=== PATIENT | male | born 1950 | race Caucasian/White ===

== ENCOUNTER 2021-02-24 17:41 | Observation (INO) | payer OTHER ==
[~2021-02-24] VITALS: Ht 160 cm; Wt 75.2 kg
[~2021-02-24 17:41] MED LIST: BUPRENORPHN-NA1 EACH SL; Budeprion Xl300 MG PO; CALCIPOTRIENE60 G1 TOP; DICL75ER PO; DOCU100 PO; DOXY100 PO; DULO30 PO; HYDPAM25 PO; LISI5 PO; MELA3 PO; METF850 PO; Metformin HCl500 MG PO; NARCAN4 MG; NIACIN PO; NICO21TP TOP; PRAZ5 PO; PREG50 PO; Prinivil10 MG PO; TAMS.4ER PO
[2021-02-24 18:52] LABS: BASOPHILS ABSOLUTE AUTO 0.05 K/mm3 (0.00-0.23); BASOPHILS PERCENT AUTO 1 % (0-2); EOSINOPHILS ABSOLUTE AUTO 0.11 K/mm3 (0.00-0.68); EOSINOPHILS PERCENT AUTO 2 % (0-6); Hematocrit 40.7 % (37.0-53.0); Hemoglobin 14.2 g/dL (13.5-17.5); IMMATURE GRAN ABSOLUTE AUTO 0.01 K/mm3 (0.00-0.10); IMMATURE GRAN PERCENT AUTO 0 % (0-1); LYMPHOCYTES ABSOLUTE AUTO 1.48 K/mm3 (0.84-5.20); LYMPHOCYTES PERCENT AUTO 26 % (21-46); MONOCYTES PERCENT AUTO 5 % (4-13); Mean Corpuscular HGB 33.5 pg (26.0-34.0); Mean Corpuscular HGB Conc 34.9 g/dL (31.5-36.5); Mean Corpuscular Volume 96 fL (80-100); Mean Platelet Volume 9.4 fL (9.1-12.4); NEUTROPHILS ABSOLUTE AUTO 3.84 K/mm3 (1.96-9.15); NEUTROPHILS PERCENT AUTO 66 % (41-73); Platelet Count 156 K/mm3 (150-400); RDW Coefficient Variation 12.5 % (11.7-14.2); RDW Standard Deviation 43.6 fL (35.1-46.3); Red Blood Cell Count 4.24 M/mm3 (4.30-5.90); White Blood Cell Count 5.79 K/mm3 (4.00-11.30)
[2021-02-24 19:19] LABS: Ethanol (Alcohol), Blood, Med 283 mg/dL; Troponin I <0.015 ng/mL (0.000-0.040)
[2021-02-24 19:23] LABS: Alanine Aminotransfer (ALT/SGP 15 U/L (12-78); Albumin, Blood 3.3 g/dL (3.4-5.0); Albumin/Globulin Ratio 0.8 (0.8-1.8); Alk Phos 46 U/L (50-136); Anion Gap 9 mmol/L (6-16); Aspartate Aminotrans (AST/SGOT 19 U/L (12-37); Bilirubin, Total 0.3 mg/dL (0.1-1.0); Blood Urea Nitrogen 14 mg/dL (8-24); Bun/Creatinine Ratio 17.3 (12.0-20.0); CO2, Blood 26 mmol/L (21-32); Calcium, Blood 9.3 mg/dL (8.5-10.1); Chloride, Blood 105 mmol/L (98-108); Creatinine, Blood 0.81 mg/dL (0.60-1.20); Globulin, Blood 4.4 g/dL (2.2-4.0); Glomerular Filtration Rate >60 (60-); Glucose, Blood 151 mg/dL (70-99); Potassium, Blood 3.6 mmol/L (3.5-5.5); Sodium, Blood 140 mmol/L (136-145); Total Protein, Blood 7.7 g/dL (6.4-8.2)
[2021-02-25 05:29] LABS: Alanine Aminotransfer (ALT/SGP 14 U/L (12-78); Albumin, Blood 2.9 g/dL (3.4-5.0); Albumin/Globulin Ratio 0.7 (0.8-1.8); Alk Phos 39 U/L (50-136); Anion Gap 9 mmol/L (6-16); Aspartate Aminotrans (AST/SGOT 16 U/L (12-37); Bilirubin, Total 0.3 mg/dL (0.1-1.0); Blood Urea Nitrogen 14 mg/dL (8-24); CO2, Blood 23 mmol/L (21-32); Calcium, Blood 9.1 mg/dL (8.5-10.1); Chloride, Blood 108 mmol/L (98-108); Creatinine, Blood 0.74 mg/dL (0.60-1.20); Globulin, Blood 3.9 g/dL (2.2-4.0); Glomerular Filtration Rate >60 (60-); Glucose, Blood 147 mg/dL (70-99); Magnesium, Blood 1.8 mg/dL (1.6-2.4); Potassium, Blood 3.6 mmol/L (3.5-5.5); Sodium, Blood 140 mmol/L (136-145); Total Protein, Blood 6.8 g/dL (6.4-8.2); Troponin I <0.015 ng/mL (0.000-0.040)
--- NOTE | 2021-02-25 05:49 | NUR ---
SHIFT SUMMARY PT ARRIVED TO THE UNIT AROUND 2330. PT WAS ABLE TO STAND AND TRANSFER TO BED, HE WAS ALERT AND ORIENTED TO SELF, PLACE, AND YEAR, HE WAS UNSURE WHY HE WAS AT THE HOSPITAL AND HAD NO MEMORY OF THE EVENTS LEADING TO HIM GETTING TO THE ER. PT WOULD REPEAT HIMSELF AT TIMES OR REPEAT QUESTIONS HE JUST ASKED. VITALS WERE STABLE WITH BP HYPERTENSIVE 130-160'S SYSTOLIC. HR 30-40'S UP TO 60-70'S FOR ABOUT 2HR AFTER ATROPINE PUSH, TELE SHOWING AFIB. PT DENIED ANY CHEST PAIN. PT NPO SINCE 0000, WILL CONTINUE TO MONITOR PT.
--- NOTE | 2021-02-25 07:03 | NUR ---
Pt irritable, states he has been awake for 28 hours and he has had enough of this, waiting for anti anxiety medications. RN Roney explaining to the pt that the medications were not ordered due to his low heart rate. Pt is angry, states "Just forget it. How long do I have to be Here?"
--- NOTE | 2021-02-25 07:41 | NUR ---
Pt CIWA 8; still agitated. Blood pressure elevated. Call to Dr. Lees and order for ativan p.o. received.
--- NOTE | 2021-02-25 09:59 | NUR ---
Spoke with Dr. Pinto regarding pt's 2.4 second pause. Blood pressure remains elevated; noted new order for catapres; will administer now.
[2021-02-25 10:26] LABS: U Amphetamine Screen Not Detected; U Barbituate Screen Not Detected; U Benzodiazapine Screen Not Detected; U Buprenorphine Screen Not Detected; U Cannabinoids Screen DETECTED; U Cocaine Screen Not Detected; U Methadone Screen Not Detected; U Methamphetamine Screen Not Detected; U Opiates Screen Not Detected; U Oxycodone Screen Not Detected; U Phencyclidine Screen Not Detected; U Propoxyphene Screen Not Detected
--- NOTE | 2021-02-25 10:46 | NUR ---
Pt appears to be sleeping, respirations even and regular. Blood pressure rechecked, normalizing. Atrial fibrillation by telemetry, rate 50 bpm at this time.
--- NOTE | 2021-02-25 14:02 | NUR ---
Agitated, states he is going outside. Informed pt that if he leaves, he will have to go through the ED to be readmitted. He decided to stay.
--- NOTE | 2021-02-25 14:15 | NUR ---
Pt states that he does not want to stay. Signing AMA form at this time with the chargemaster analyst; IV removed, tele removed.
== END 2021-02-25 14:20 | disposition left against medical advice (07) ==
LOC: ER 17:41 → PCU 17:42
PROVIDERS: Emergency Medicine; ADMIT Internal Medicine
DX: R00.1 Bradycardia, unspecified (principal); R55 Syncope and collapse; F17.210 Nicotine dependence, cigarettes, uncomplicated; F10.129 Alcohol abuse with intoxication, unspecified; I10 Essential (primary) hypertension; E11.9 Type 2 diabetes mellitus without complications; I48.91 Unspecified atrial fibrillation; S09.90XA Unspecified injury of head, initial encounter; X58.XXXA Exposure to other specified factors, initial encounter; Z88.2 Allergy status to sulfonamides; Z88.5 Allergy status to narcotic agent; Z88.8 Allergy status to other drugs, medicaments and biological substances; Z53.29 Procedure and treatment not carried out because of patient's decision for other reasons; Y90.8 Blood alcohol level of 240 mg/100 ml or more
CPT/HCPCS: 36415; 70450; 80053; 83735; 84443; 84484; 85025; 93005; 93010; 96374; 96375; 99285-25; A9270; G0378; G0480; J0461

== ENCOUNTER 2021-03-23 15:22 | Emergency (ER) | payer OTHER ==
[~2021-03-23] VITALS: Ht 160 cm; Wt 81.7 kg
== END 2021-03-23 17:26 | disposition home or self-care (01) ==
LOC: ER 15:22
DX: S09.90XA Unspecified injury of head, initial encounter (principal); S01.01XA Laceration without foreign body of scalp, initial encounter; I10 Essential (primary) hypertension; E11.9 Type 2 diabetes mellitus without complications; F17.210 Nicotine dependence, cigarettes, uncomplicated; Z88.2 Allergy status to sulfonamides; Z88.5 Allergy status to narcotic agent; Z88.6 Allergy status to analgesic agent; Z79.899 Other long term (current) drug therapy; W18.30XA Fall on same level, unspecified, initial encounter; Y92.009 Unspecified place in unspecified non-institutional (private) residence as the place of occurrence of the external cause
CPT/HCPCS: 12001; 70450; 72125; 99284-25

== ENCOUNTER 2021-04-02 22:15 | Emergency (ER) | payer OTHER ==
[~2021-04-02] VITALS: Ht 180.3 cm; Wt 79.4 kg
[2021-04-02 22:38] LABS: BASOPHILS ABSOLUTE AUTO 0.04 K/mm3 (0.00-0.23); BASOPHILS PERCENT AUTO 1 % (0-2); EOSINOPHILS ABSOLUTE AUTO 0.06 K/mm3 (0.00-0.68); EOSINOPHILS PERCENT AUTO 1 % (0-6); Hematocrit 36.3 % (37.0-53.0); IMMATURE GRAN ABSOLUTE AUTO 0.01 K/mm3 (0.00-0.10); IMMATURE GRAN PERCENT AUTO 0 % (0-1); LYMPHOCYTES PERCENT AUTO 31 % (21-46); MONOCYTES PERCENT AUTO 6 % (4-13); Mean Corpuscular HGB 34.4 pg (26.0-34.0); Mean Corpuscular HGB Conc 35.8 g/dL (31.5-36.5); Mean Corpuscular Volume 96 fL (80-100); Mean Platelet Volume 9.6 fL (9.1-12.4); NEUTROPHILS ABSOLUTE AUTO 2.93 K/mm3 (1.96-9.15); NEUTROPHILS PERCENT AUTO 61 % (41-73); Platelet Count 156 K/mm3 (150-400); RDW Coefficient Variation 13.1 % (11.7-14.2); Red Blood Cell Count 3.78 M/mm3 (4.30-5.90); White Blood Cell Count 4.84 K/mm3 (4.00-11.30)
[2021-04-02 22:52] LABS: Alanine Aminotransfer (ALT/SGP 29 U/L (12-78); Albumin, Blood 3.2 g/dL (3.4-5.0); Albumin/Globulin Ratio 0.8 (0.8-1.8); Alk Phos 42 U/L (50-136); Anion Gap 12 mmol/L (6-16); Aspartate Aminotrans (AST/SGOT 53 U/L (12-37); Bilirubin, Total 0.3 mg/dL (0.1-1.0); Blood Urea Nitrogen 14 mg/dL (8-24); CO2, Blood 21 mmol/L (21-32); Calcium, Blood 9.1 mg/dL (8.5-10.1); Chloride, Blood 109 mmol/L (98-108); Creatinine, Blood 1.17 mg/dL (0.60-1.20); Ethanol (Alcohol), Blood, Med 278 mg/dL; Glomerular Filtration Rate >60 (60-); Glucose, Blood 192 mg/dL (70-99); Potassium, Blood 4.1 mmol/L (3.5-5.5); Sodium, Blood 142 mmol/L (136-145); Total Protein, Blood 7.2 g/dL (6.4-8.2)
[2021-04-03 00:23] LABS: Source, Urine Clean Catch
[2021-04-03 00:28] LABS: Bilirubin, Urine Neg (Neg); Blood, Urine Neg (Neg); Glucose Qualitative, Urine Neg (Neg); Ketones, Urine Neg (Neg); Leukocyte Esterase, Urine Neg (Neg); Nitrite, Urine Neg (Neg); Protein, Urine 3+ (Neg); Urobilinogen, Urine NORM (Normal)
[2021-04-03 00:29] LABS: Appearance, Urine Clear (Clear); Color, Urine Yellow (P-Yellow)
[2021-04-03 00:55] LABS: White Blood Cells, Urine Rare /hpf (0-5)
[2021-04-03 00:56] LABS: Bacteria Not Seen /hpf; Red Blood Cells, Urine Not Seen /hpf (0-2); Squamous Epithelial Cells Not Seen /hpf (Few)
== END 2021-04-03 02:00 | disposition home or self-care (01) ==
LOC: ER 22:15
PROVIDERS: Student in an Organized Health Care Education/Training Program
DX: S00.03XA Contusion of scalp, initial encounter (principal); F10.129 Alcohol abuse with intoxication, unspecified; I10 Essential (primary) hypertension; E11.9 Type 2 diabetes mellitus without complications; F17.200 Nicotine dependence, unspecified, uncomplicated; Z88.2 Allergy status to sulfonamides; Z88.5 Allergy status to narcotic agent; Z88.6 Allergy status to analgesic agent; Z79.899 Other long term (current) drug therapy; W17.81XA Fall down embankment (hill), initial encounter
CPT/HCPCS: 70450; 71260; 72125; 74177; 80053; 81001; 83690; 85025; 96374-59; 99285-25; G0480; J2270; Q9967

== ENCOUNTER 2021-05-14 19:45 | Emergency (ER) | payer OTHER ==
[~2021-05-14] VITALS: Ht 162.6 cm; Wt 72.6 kg
== END 2021-05-15 02:20 | disposition home or self-care (01) ==
LOC: ER 19:45
DX: S06.0X9A Concussion with loss of consciousness of unspecified duration, initial encounter (principal); E11.9 Type 2 diabetes mellitus without complications; I10 Essential (primary) hypertension; F17.200 Nicotine dependence, unspecified, uncomplicated; F10.129 Alcohol abuse with intoxication, unspecified; Z88.6 Allergy status to analgesic agent; Z88.2 Allergy status to sulfonamides; Z88.5 Allergy status to narcotic agent; W18.30XA Fall on same level, unspecified, initial encounter
CPT/HCPCS: 36415; 70450; 72125; 99284-25; A9270

== ENCOUNTER 2022-02-19 16:09 | Emergency (ER) | payer MEDICARE ==
[~2022-02-19] VITALS: Ht 160 cm; Wt 68.0 kg
[2022-02-19 16:55] LABS: Source, Urine Clean Catch
[2022-02-19 17:01] LABS: BASOPHILS ABSOLUTE AUTO 0.04 K/mm3 (0.00-0.23); BASOPHILS PERCENT AUTO 1 % (0-2); EOSINOPHILS ABSOLUTE AUTO 0.04 K/mm3 (0.00-0.68); EOSINOPHILS PERCENT AUTO 1 % (0-6); Hemoglobin 11.7 g/dL (13.5-17.5); IMMATURE GRAN ABSOLUTE AUTO 0.01 K/mm3 (0.00-0.10); IMMATURE GRAN PERCENT AUTO 0 % (0-1); LYMPHOCYTES ABSOLUTE AUTO 0.77 K/mm3 (0.84-5.20); LYMPHOCYTES PERCENT AUTO 21 % (21-46); MONOCYTES PERCENT AUTO 8 % (4-13); Mean Corpuscular HGB 33.4 pg (26.0-34.0); Mean Corpuscular HGB Conc 34.4 g/dL (31.5-36.5); Mean Corpuscular Volume 97 fL (80-100); Mean Platelet Volume 9.7 fL (9.1-12.4); NEUTROPHILS ABSOLUTE AUTO 2.52 K/mm3 (1.96-9.15); NEUTROPHILS PERCENT AUTO 68 % (41-73); Platelet Count 118 K/mm3 (150-400); RDW Coefficient Variation 13.3 % (11.7-14.2); RDW Standard Deviation 47.3 fL (35.1-46.3); White Blood Cell Count 3.68 K/mm3 (4.00-11.30)
[2022-02-19 17:02] LABS: Appearance, Urine Clear (Clear); Bilirubin, Urine Neg (Neg); Blood, Urine 1+ (Neg); Color, Urine Yellow (P-Yellow); Glucose Qualitative, Urine Neg (Neg); Ketones, Urine Neg (Neg); Leukocyte Esterase, Urine Neg (Neg); Nitrite, Urine Neg (Neg); Protein, Urine 3+ (Neg); Specific Gravity, Urine 1.015 (1.003-1.022); Urobilinogen, Urine NORM (Normal)
[2022-02-19 17:17] LABS: U Amphetamine Screen Not Detected; U Barbituate Screen Not Detected; U Benzodiazapine Screen Not Detected; U Buprenorphine Screen Not Detected; U Cannabinoids Screen Not Detected; U Cocaine Screen Not Detected; U Methadone Screen Not Detected; U Methamphetamine Screen Not Detected; U Opiates Screen Not Detected; U Oxycodone Screen Not Detected; U Phencyclidine Screen Not Detected; U Propoxyphene Screen Not Detected
[2022-02-19 17:19] LABS: White Blood Cells, Urine 0-2 /hpf (0-5)
[2022-02-19 17:20] LABS: Bacteria Rare /hpf; Squamous Epithelial Cells Not Seen /hpf (Few)
[2022-02-19 17:24] LABS: Acetaminophen, Random <2.0 ug/mL (10.0-30.0); Alanine Aminotransfer (ALT/SGP 37 U/L (12-78); Albumin, Blood 2.6 g/dL (3.4-5.0); Albumin/Globulin Ratio 0.7 (0.8-1.8); Alk Phos 57 U/L (50-136); Anion Gap 10 mmol/L (6-16); Aspartate Aminotrans (AST/SGOT 91 U/L (12-37); Bilirubin, Total 0.5 mg/dL (0.1-1.0); Blood Urea Nitrogen 20 mg/dL (8-24); Bun/Creatinine Ratio 22.7 (12.0-20.0); CO2, Blood 21 mmol/L (21-32); Calcium, Blood 8.6 mg/dL (8.5-10.1); Chloride, Blood 103 mmol/L (98-108); Creatinine, Blood 0.88 mg/dL (0.60-1.20); Ethanol (Alcohol), Blood, Med 221 mg/dL; Globulin, Blood 3.7 g/dL (2.2-4.0); Glomerular Filtration Rate 93 (60-); Glucose, Blood 227 mg/dL (70-99); Potassium, Blood 3.6 mmol/L (3.5-5.5); Salicylate <1.7 mg/dL (2.8-20.0); Sodium, Blood 134 mmol/L (136-145); Total Protein, Blood 6.3 g/dL (6.4-8.2)
[2022-02-19 19:30] LABS: Influenza A, PCR NEGATIVE (NEGATIVE); Influenza B, PCR NEGATIVE (NEGATIVE); Resp Syncytial Virus, PCR NEGATIVE (NEGATIVE); SARS-Cov-2 (COVID-19) PCR, MMC NEGATIVE (NEGATIVE)
== END 2022-02-20 00:34 | disposition home or self-care (01) ==
LOC: ER 16:09
PROVIDERS: Physician Assistant
DX: F32.A Depression, unspecified (principal); I10 Essential (primary) hypertension; E11.9 Type 2 diabetes mellitus without complications; F17.200 Nicotine dependence, unspecified, uncomplicated; Z88.2 Allergy status to sulfonamides; Z88.5 Allergy status to narcotic agent; Z88.6 Allergy status to analgesic agent; Z79.899 Other long term (current) drug therapy
CPT/HCPCS: 0241U; 36415; 80053; 81001; 84484; 85025; 93005; 93010; A9270; G0480

== ENCOUNTER 2022-02-20 21:08 | Emergency (ER) | payer OTHER ==
[~2022-02-20] VITALS: Ht 160 cm; Wt 74.8 kg
== END 2022-02-21 01:31 | disposition home or self-care (01) ==
LOC: ER 21:08
DX: F10.129 Alcohol abuse with intoxication, unspecified (principal); F17.210 Nicotine dependence, cigarettes, uncomplicated
CPT/HCPCS: 99284-25

== ENCOUNTER 2022-02-21 02:51 | Emergency (ER) | payer OTHER ==
[~2022-02-21] VITALS: Ht 160 cm; Wt 72.6 kg
== END 2022-02-21 03:58 | disposition home or self-care (01) ==
LOC: ER 02:51
DX: M54.50 Low back pain, unspecified (principal); G89.29 Other chronic pain; I10 Essential (primary) hypertension; E11.9 Type 2 diabetes mellitus without complications; F17.210 Nicotine dependence, cigarettes, uncomplicated; Z88.2 Allergy status to sulfonamides; Z88.5 Allergy status to narcotic agent; Z88.8 Allergy status to other drugs, medicaments and biological substances; Z79.899 Other long term (current) drug therapy
CPT/HCPCS: A9270

== ENCOUNTER 2022-02-21 06:47 | Emergency (ER) | payer OTHER ==
[~2022-02-21] VITALS: Ht 160 cm; Wt 76.2 kg
== END 2022-02-21 08:17 | disposition home or self-care (01) ==
LOC: ER 06:47
DX: M54.50 Low back pain, unspecified (principal); Z87.891 Personal history of nicotine dependence; Z88.2 Allergy status to sulfonamides; Z88.6 Allergy status to analgesic agent; Z79.899 Other long term (current) drug therapy; Z88.5 Allergy status to narcotic agent
CPT/HCPCS: 99282

== ENCOUNTER 2022-02-28 12:18 | Emergency (ER) | payer OTHER ==
[~2022-02-28] VITALS: Ht 160 cm; Wt 70.3 kg
[2022-02-28 13:14] LABS: BASOPHILS ABSOLUTE AUTO 0.02 K/mm3 (0.00-0.23); BASOPHILS PERCENT AUTO 1 % (0-2); EOSINOPHILS ABSOLUTE AUTO 0.05 K/mm3 (0.00-0.68); EOSINOPHILS PERCENT AUTO 2 % (0-6); Hematocrit 32.7 % (37.0-53.0); IMMATURE GRAN PERCENT AUTO 0 % (0-1); LYMPHOCYTES ABSOLUTE AUTO 0.67 K/mm3 (0.84-5.20); LYMPHOCYTES PERCENT AUTO 21 % (21-46); MONOCYTES ABSOLUTE AUTO 0.33 K/mm3 (0.16-1.47); MONOCYTES PERCENT AUTO 11 % (4-13); Mean Corpuscular HGB 34.2 pg (26.0-34.0); Mean Corpuscular HGB Conc 33.6 g/dL (31.5-36.5); Mean Corpuscular Volume 102 fL (80-100); Mean Platelet Volume 10.6 fL (9.1-12.4); NEUTROPHILS ABSOLUTE AUTO 2.08 K/mm3 (1.96-9.15); NEUTROPHILS PERCENT AUTO 66 % (41-73); Platelet Count 94 K/mm3 (150-400); RDW Coefficient Variation 13.5 % (11.7-14.2); RDW Standard Deviation 50.4 fL (35.1-46.3); Red Blood Cell Count 3.22 M/mm3 (4.30-5.90); White Blood Cell Count 3.15 K/mm3 (4.00-11.30)
[2022-02-28 13:37] LABS: Albumin, Blood 2.6 g/dL (3.4-5.0); Albumin/Globulin Ratio 0.7 (0.8-1.8); Bilirubin, Total 0.3 mg/dL (0.1-1.0); Bun/Creatinine Ratio 33.9 (12.0-20.0); Calcium, Blood 9.1 mg/dL (8.5-10.1); Creatinine, Blood 0.95 mg/dL (0.60-1.20); Globulin, Blood 3.5 g/dL (2.2-4.0); Potassium, Blood 4.6 mmol/L (3.5-5.5); Total Protein, Blood 6.1 g/dL (6.4-8.2)
[2022-02-28 14:13] LABS: Magnesium, Blood 1.6 mg/dL (1.6-2.4); Phosphorus, Blood 3.7 mg/dL (2.5-4.9)
[2022-02-28] MEDS ORDERED: ASCO500 PO (14:39)
[2022-02-28] MEDS ORDERED: ELIQUIS5 M2 PO (14:39)
[2022-02-28] MEDS ORDERED: AMLO10 PO (14:39)
[2022-02-28] MEDS ORDERED: ERGO400 PO (14:40)
[2022-02-28] MEDS ORDERED: Vitamin B-12100 MCG PO (14:41)
[2022-02-28] MEDS ORDERED: FERSU300 PO (14:41)
[2022-02-28] MEDS ORDERED: GABA300 PO (14:42)
[2022-02-28] MEDS ORDERED: INSULIN AS100 UNIT/7 (14:43)
[2022-02-28] MEDS ORDERED: LEVEMIR FL100 UNIT/2 SC (14:44)
[2022-02-28] MEDS ORDERED: LISI20 PO (14:45)
[2022-02-28] MEDS ORDERED: STRIVERDI RESPIM4 G1 IH (14:47)
[2022-02-28] MEDS ORDERED: METF500 PO (14:47)
[2022-02-28] MEDS ORDERED: PRAZ1 PO (14:56)
[2022-02-28] MEDS ORDERED: OMEP20ER PO (14:56)
[2022-02-28] MEDS ORDERED: SPIR25 PO (14:57)
[2022-02-28] MEDS ORDERED: TRAZ100 PO (14:58)
[2022-02-28] MEDS ORDERED: VENL75ER (14:58)
== END 2022-02-28 16:58 | disposition home or self-care (01) ==
LOC: ER 12:18
PROVIDERS: Emergency Medicine; Physician Assistant
DX: R00.1 Bradycardia, unspecified (principal); R42 Dizziness and giddiness; I10 Essential (primary) hypertension; E11.9 Type 2 diabetes mellitus without complications; F32.A Depression, unspecified; Z87.891 Personal history of nicotine dependence
CPT/HCPCS: 71045; 80053; 83735; 84100; 84484; 85025; 93005; 93010

== ENCOUNTER 2022-06-03 19:34 | Emergency (ER) | payer OTHER ==
[~2022-06-03] VITALS: Ht 160 cm; Wt 70.3 kg
[~2022-06-03 19:34] MED LIST changes: +AMLO10 PO; +ASCO500 PO; +ELIQUIS5 M2 PO; +ERGO400 PO; +FERSU300 PO; +GABA300 PO; +INSULIN AS100 UNIT/7; +LEVEMIR FL100 UNIT/2 SC; +LISI20 PO; +METF500 PO; +OMEP20ER PO; +PRAZ1 PO; +SPIR25 PO; +STRIVERDI RESPIM4 G1 IH; +TRAZ100 PO; +VENL75ER; +Vitamin B-12100 MCG PO
== END 2022-06-03 22:27 | disposition home or self-care (01) ==
LOC: ER 19:34
DX: F32.9 Major depressive disorder, single episode, unspecified (principal); I10 Essential (primary) hypertension; E11.9 Type 2 diabetes mellitus without complications; F17.210 Nicotine dependence, cigarettes, uncomplicated; Z79.899 Other long term (current) drug therapy; Z79.01 Long term (current) use of anticoagulants; Z79.4 Long term (current) use of insulin; Z88.2 Allergy status to sulfonamides; Z88.5 Allergy status to narcotic agent; Z88.8 Allergy status to other drugs, medicaments and biological substances
CPT/HCPCS: 99283

== ENCOUNTER 2022-06-04 12:03 | Emergency (ER) | payer OTHER ==
[~2022-06-04] VITALS: Ht 162.6 cm; Wt 77.1 kg
== END 2022-06-04 14:28 | disposition home or self-care (01) ==
LOC: ER 12:03
DX: S01.112A Laceration without foreign body of left eyelid and periocular area, initial encounter (principal); I10 Essential (primary) hypertension; E11.9 Type 2 diabetes mellitus without complications; F17.210 Nicotine dependence, cigarettes, uncomplicated; Z79.4 Long term (current) use of insulin; Z79.899 Other long term (current) drug therapy; Z79.01 Long term (current) use of anticoagulants; Z88.5 Allergy status to narcotic agent; Z88.2 Allergy status to sulfonamides; Z88.8 Allergy status to other drugs, medicaments and biological substances
CPT/HCPCS: 36415; 70450; 72125

== ENCOUNTER 2022-06-04 15:02 | Emergency (ER) | payer OTHER ==
[~2022-06-04] VITALS: Ht 160 cm; Wt 77.1 kg
== END 2022-06-04 21:20 | disposition home or self-care (01) ==
LOC: ER 15:02
DX: F32.A Depression, unspecified (principal); I10 Essential (primary) hypertension; E11.9 Type 2 diabetes mellitus without complications; F17.210 Nicotine dependence, cigarettes, uncomplicated; Z79.4 Long term (current) use of insulin; Z79.01 Long term (current) use of anticoagulants; Z88.2 Allergy status to sulfonamides; Z88.5 Allergy status to narcotic agent; Z88.8 Allergy status to other drugs, medicaments and biological substances; Z79.899 Other long term (current) drug therapy
CPT/HCPCS: A9270

== ENCOUNTER 2022-06-24 07:45 | Emergency (ER) | payer OTHER ==
[~2022-06-24] VITALS: Ht 162.6 cm; Wt 74.8 kg
== END 2022-06-24 08:54 | disposition home or self-care (01) ==
LOC: ER 07:45
DX: Z76.89 Persons encountering health services in other specified circumstances (principal); Z59.00 Homelessness unspecified; I10 Essential (primary) hypertension; E11.9 Type 2 diabetes mellitus without complications; F17.210 Nicotine dependence, cigarettes, uncomplicated; Z79.899 Other long term (current) drug therapy; Z79.4 Long term (current) use of insulin; Z79.01 Long term (current) use of anticoagulants; Z88.2 Allergy status to sulfonamides; Z88.5 Allergy status to narcotic agent; Z88.8 Allergy status to other drugs, medicaments and biological substances
CPT/HCPCS: 99283

== ENCOUNTER 2023-10-06 14:50 | Emergency (ER) | payer MEDICARE ==
[~2023-10-06] VITALS: Ht 162.6 cm; Wt 59.0 kg
[2023-10-06 15:13] VITALS: BP 149/71
== END 2023-10-06 17:47 | disposition home or self-care (01) ==
LOC: ER 14:50
DX: M54.50 Low back pain, unspecified (principal); G89.29 Other chronic pain; F17.210 Nicotine dependence, cigarettes, uncomplicated; I10 Essential (primary) hypertension; E11.9 Type 2 diabetes mellitus without complications; F43.10 Post-traumatic stress disorder, unspecified; Z79.4 Long term (current) use of insulin; Z79.84 Long term (current) use of oral hypoglycemic drugs; Z79.01 Long term (current) use of anticoagulants; Z79.899 Other long term (current) drug therapy; Z88.2 Allergy status to sulfonamides; Z88.5 Allergy status to narcotic agent; Z88.8 Allergy status to other drugs, medicaments and biological substances
CPT/HCPCS: 96372; 99283-25; A9270; J1885

== ENCOUNTER 2024-08-08 05:31 | Inpatient (IN) | payer OTHER ==
[2024-08-08] VITALS (9 sets, daily range): BP systolic 150–182; BP diastolic 58–82
[~2024-08-08] VITALS: Ht 162.6 cm; Wt 78.4 kg
[2024-08-08 06:05] LABS: BASOPHILS ABSOLUTE AUTO 0.04 K/mm3 (0.00-0.23); BASOPHILS PERCENT AUTO 1 % (0-2); EOSINOPHILS ABSOLUTE AUTO 0.14 K/mm3 (0.00-0.68); EOSINOPHILS PERCENT AUTO 2 % (0-6); Hematocrit 27.8 % (37.0-53.0); Hemoglobin 9.1 g/dL (13.5-17.5); IMMATURE GRAN ABSOLUTE AUTO 0.01 K/mm3 (0.00-0.10); IMMATURE GRAN PERCENT AUTO 0 % (0-1); LYMPHOCYTES ABSOLUTE AUTO 0.97 K/mm3 (0.84-5.20); LYMPHOCYTES PERCENT AUTO 17 % (21-46); MONOCYTES ABSOLUTE AUTO 0.41 K/mm3 (0.16-1.47); MONOCYTES PERCENT AUTO 7 % (4-13); Mean Corpuscular HGB 29.6 pg (26.0-34.0); Mean Corpuscular HGB Conc 32.7 g/dL (31.5-36.5); Mean Corpuscular Volume 91 fL (80-100); Mean Platelet Volume 9.8 fL (9.1-12.4); NEUTROPHILS ABSOLUTE AUTO 4.17 K/mm3 (1.96-9.15); NEUTROPHILS PERCENT AUTO 73 % (41-73); Platelet Count 155 K/mm3 (150-400); RDW Coefficient Variation 13.6 % (11.7-14.2); RDW Standard Deviation 44.9 fL (35.1-46.3); Red Blood Cell Count 3.07 M/mm3 (4.30-5.90); White Blood Cell Count 5.74 K/mm3 (4.00-11.30)
[2024-08-08 06:29] LABS: Albumin, Blood 3.5 g/dL (3.4-5.0); Albumin/Globulin Ratio 0.9 (0.8-1.8); Bilirubin, Total 0.6 mg/dL (0.1-1.0); Bun/Creatinine Ratio 34.8 (12.0-20.0); Calcium, Blood 9.5 mg/dL (8.5-10.1); Creatinine, Blood 1.41 mg/dL (0.60-1.20); Globulin, Blood 4.1 g/dL (2.2-4.0); Potassium, Blood 4.3 mmol/L (3.5-5.5); Total Protein, Blood 7.6 g/dL (6.4-8.2)
[2024-08-08 06:43] LABS: Influenza A, PCR NEGATIVE (NEGATIVE); Influenza B, PCR NEGATIVE (NEGATIVE); Resp Syncytial Virus, PCR NEGATIVE (NEGATIVE); SARS-Cov-2 (COVID-19) PCR, MMC NEGATIVE (NEGATIVE)
[2024-08-08] MEDS ORDERED: Nicotine 21 MG PATCH TOP ONE (07:10)
[2024-08-08] MEDS ORDERED: Furosemide 10 MG / ML 2ML Vial IV ONE (07:45)
[2024-08-08 08:27] LABS: Base Excess Venous -2.8 mmol/L; Bicarbonate Venous 22.1 mmol/L (24.0-30.0); pH Blood Venous 7.33 (7.34-7.37)
[2024-08-08] MEDS ORDERED: FLU VACC TS2024-25(6MOS UP)/PF 45 MCG/0.5 ML SYRINGE IM PRN (09:45)
[2024-08-08] MEDS ORDERED: BUTRANS TD ×2 (09:48→15:55)
[2024-08-08] MEDS ORDERED: Acetaminophen325 M1 PO (09:49)
[2024-08-08] MEDS ORDERED: LIDO700A20 TOP (09:51)
[2024-08-08] MEDS ORDERED: STRIVERDI RESPIM4 G1 (09:52)
[2024-08-08] MEDS ORDERED: PANT40 PO (09:53)
[2024-08-08] MEDS ORDERED: Crestor40 MG PO (09:54)
[2024-08-08] MEDS ORDERED: SERT100 PO (09:54)
[2024-08-08] MEDS ORDERED: ALBU90OI INH (09:55)
[2024-08-08] MEDS ORDERED: LOPE2C PO (09:56)
[2024-08-08] MEDS ORDERED: Acetaminophen 325 MG TABLET PO PRN (11:05)
--- NOTE | 2024-08-08 11:24 | NUR ---
REPORT RECIEVED FROM ED NURSE AT 1121.
--- NOTE | 2024-08-08 12:00 | NUR ---
ARRIVAL TO PCU 10 PT ARRIVED TO PCU 10 AT APPROXIMATELY 1200. PT SLID OVER FROM ER GURNEY TO HOSPITAL BED BY 4 CLINICAL STAFF MEMBERS. PT KNOWS HE IS IN HOSPITAL BUT DOESN'T ANSWER ANY OTHER ORIENTATION QUESTIONS APPROPRIATELY. BP ELEVATED, NOTIFIED PHYSICIAN. AFIB / PACED 50-70's, DENIES CP/PRESSURE. SpO2> 92% 3-5L VIA NC, REPORTS SOB WITH ACTIVITY. PT YELLING AND CUSSING AT STAFF. ORIENTED TO CALL LIGHT / UNIT. BED IN LOWEST POSITION, BED ALARM ON.
[2024-08-08] MEDS ORDERED: Ipratropium/Albuterol SulF 2.5-0.5MG/3 ML Amp INH SCH (12:15)
[2024-08-08] MEDS ORDERED: Albuterol 2.5 MG/3 ML VIAL INH PRN (12:15)
[2024-08-08] MEDS ORDERED: Labetalol HCL 5 MG/ML 4ML Injection (Single Dose) IV PRN (13:30)
[2024-08-08] MEDS ORDERED: AmLODIPine Besylate 5 MG Tab PO SCH (14:00)
[2024-08-08] MEDS ORDERED: TOCO1000 PO (15:57)
[2024-08-08] MEDS ORDERED: GABA100 PO (15:58)
[2024-08-08] MEDS ORDERED: SENN187 PO (16:05)
[2024-08-08] MEDS ORDERED: DULCOLAX400 MG/5 M PO (16:08)
[2024-08-08] MEDS ORDERED: NYSTATIN15 GM TOP (16:09)
[2024-08-08] MEDS ORDERED: Furosemide 10 MG/ML 4ML Vial IV SCH (18:00)
[2024-08-08] MEDS ORDERED: Apixaban 5 MG Tab PO SCH (21:00)
[2024-08-09 03:53] VITALS: BP 160/72
[2024-08-09 03:56] LABS: BASOPHILS ABSOLUTE AUTO 0.03 K/mm3 (0.00-0.23); BASOPHILS PERCENT AUTO 1 % (0-2); EOSINOPHILS ABSOLUTE AUTO 0.09 K/mm3 (0.00-0.68); EOSINOPHILS PERCENT AUTO 2 % (0-6); Hematocrit 25.7 % (37.0-53.0); Hemoglobin 8.8 g/dL (13.5-17.5); IMMATURE GRAN ABSOLUTE AUTO 0.01 K/mm3 (0.00-0.10); IMMATURE GRAN PERCENT AUTO 0 % (0-1); LYMPHOCYTES ABSOLUTE AUTO 0.79 K/mm3 (0.84-5.20); LYMPHOCYTES PERCENT AUTO 15 % (21-46); MONOCYTES ABSOLUTE AUTO 0.34 K/mm3 (0.16-1.47); MONOCYTES PERCENT AUTO 6 % (4-13); Mean Corpuscular HGB 30.4 pg (26.0-34.0); Mean Corpuscular HGB Conc 34.2 g/dL (31.5-36.5); Mean Corpuscular Volume 89 fL (80-100); Mean Platelet Volume 10.1 fL (9.1-12.4); NEUTROPHILS ABSOLUTE AUTO 4.11 K/mm3 (1.96-9.15); NEUTROPHILS PERCENT AUTO 77 % (41-73); Platelet Count 136 K/mm3 (150-400); RDW Coefficient Variation 13.7 % (11.7-14.2); RDW Standard Deviation 44.2 fL (35.1-46.3); Red Blood Cell Count 2.89 M/mm3 (4.30-5.90); White Blood Cell Count 5.37 K/mm3 (4.00-11.30)
[2024-08-09 04:23] LABS: Albumin, Blood 3.2 g/dL (3.4-5.0); Albumin/Globulin Ratio 0.8 (0.8-1.8); Bilirubin, Total 0.8 mg/dL (0.1-1.0); Calcium, Blood 8.9 mg/dL (8.5-10.1); Creatinine, Blood 1.15 mg/dL (0.60-1.20); Globulin, Blood 3.8 g/dL (2.2-4.0); Potassium, Blood 3.7 mmol/L (3.5-5.5)
--- NOTE | 2024-08-09 05:53 | NUR ---
SHIFT SUMMARY PATIENT ALERT, ORIENTED TO SELF ONLY. PATIENT VERY ANGRY WITH WORDS AND WILL YELL OUT AND USE PROFANITIES BUT IS REDIRECTABLE. BED ALARM ON FOR SAFETY PATIENT IS IMPULSIVE AT TIMES. HYPERTENSIVE BUT PRN MEDICATIONS OUT OF PARAMETERS THIS SHIFT. ON 3-5L NC WITH SPO2 LOW TO MID 90s. PER [employer], PATIENT VPACED ON MONITOR. USED BIPAP FOR RESCUE BUT PATIENT ONLY ABLE TO TOLERATE FOR ABOUT 20 MINUTES. PATIENT INCONTINENT, ATTENDS IN PLACE. NO OTHER CHANGES DURING THE NIGHT, WILL REPORT TO DAY SHIFT RN.
[2024-08-09] MEDS ORDERED: Pantoprazole Sodium 40 MG Tab PO SCH (06:00)
[2024-08-09] MEDS ORDERED: Magnesium Hydroxide Conc 10 ML UDC PO PRN (07:25)
[2024-08-09] MEDS ORDERED: Nystatin 100,000 Unit/GM CREAM 15 GM TOP PRN (07:35)
[2024-08-09] MEDS ORDERED: Misc. Topical TOP SCH (08:00)
[2024-08-09] MEDS ORDERED: Ipratropium/Albuterol SulF 2.5-0.5MG/3 ML Amp INH PRN (08:05)
[2024-08-09 08:35] VITALS: BP 160/79
[2024-08-09] MEDS ORDERED: Rosuvastatin Calcium 10 MG Tab PO SCH (09:00)
[2024-08-09] MEDS ORDERED: Sertraline HCl 100 MG Tab PO SCH (09:00)
[2024-08-09] MEDS ORDERED: Sennosides 8.6 MG Tab PO SCH (09:00)
[2024-08-09] MEDS ORDERED: Gabapentin 300 MG Cap PO SCH (09:00)
[2024-08-09] MEDS ORDERED: Enoxaparin 40 MG/0.4 ML SYR SC SCH (09:00)
[2024-08-09] MEDS ORDERED: Nicotine 21 MG PATCH TOP SCH (09:00)
[2024-08-09] MEDS ORDERED: AmLODIPine Besylate 5 MG Tab PO SCH (09:00)
[2024-08-09] MEDS ORDERED: Vitamin E 1000 Unit Cap PO SCH (09:00)
[2024-08-09 11:34] VITALS: BP 153/72
[2024-08-09] MEDS ORDERED: Furosemide 10 MG/ML 4ML Vial IV SCH (13:00)
[2024-08-09 16:02] VITALS: BP 157/76
--- NOTE | 2024-08-09 18:30 | NUR ---
SHIFT SUMMARY: PT A&OX2. KNOWS WHERE HE IS AT AND IS ORIENTED TO SELF. PT IS CONFUSED OFF AND ON BUT IS EASILY REDIRECTABLE. PT REMAINS ON 2.5 L NC. PT GOT UP TO THE CHAIR MULTIPLE TIMES TODAY. PURE WICK PLACED ON PT DUE TO A LARGE AMOUNT OF INCONTINENT URINE AND BEING ON STRICT I&O. PT DENIES ANY CP OR SOB THROUGHOUT SHIFT. NO SIGNIFICANT EVENTS HAPPENED DURING THIS SHIFT. NO ACUTE NEURO CHANGES. WILL CONTINUE TO CARE FOR PT TILL END OF SHIFT.
[2024-08-09 20:00] VITALS: BP 152/56
[2024-08-10] VITALS: BP 140/88
--- NOTE | 2024-08-10 01:04 | NUR ---
PT ALERT AND ORIENTED X2, LITTLE CONFUSED BUT REDIRECTABLE, LAYING COMFORTABLY IN BED. PT IS PACED AT 60s, DENIES CHEST PAIN. PT IS ON ROOM AIR SATTING >95%, CLEAR OVER DIMINISHED LUNG SOUNDS. PT HAS MALE PUREWICK THAT IS WORKING GREAT. PLAN OF CARE CONTINUED.
[2024-08-10 04:00] VITALS: BP 165/70
--- NOTE | 2024-08-10 04:07 | NUR ---
PT LAYING IN BED WATCHING TELEVISION. NO NEW EVENTS TO REPORT OVERNIGHT. PLAN OF CARE CONTINUED.
[2024-08-10 04:18] LABS: BASOPHILS ABSOLUTE AUTO 0.04 K/mm3 (0.00-0.23); BASOPHILS PERCENT AUTO 1 % (0-2); EOSINOPHILS ABSOLUTE AUTO 0.17 K/mm3 (0.00-0.68); EOSINOPHILS PERCENT AUTO 3 % (0-6); Hematocrit 28.1 % (37.0-53.0); Hemoglobin 9.5 g/dL (13.5-17.5); IMMATURE GRAN ABSOLUTE AUTO 0.01 K/mm3 (0.00-0.10); IMMATURE GRAN PERCENT AUTO 0 % (0-1); LYMPHOCYTES ABSOLUTE AUTO 0.94 K/mm3 (0.84-5.20); LYMPHOCYTES PERCENT AUTO 17 % (21-46); MONOCYTES ABSOLUTE AUTO 0.41 K/mm3 (0.16-1.47); MONOCYTES PERCENT AUTO 8 % (4-13); Mean Corpuscular HGB 30.4 pg (26.0-34.0); Mean Corpuscular HGB Conc 33.8 g/dL (31.5-36.5); Mean Corpuscular Volume 90 fL (80-100); Mean Platelet Volume 9.5 fL (9.1-12.4); NEUTROPHILS ABSOLUTE AUTO 3.87 K/mm3 (1.96-9.15); NEUTROPHILS PERCENT AUTO 71 % (41-73); Platelet Count 161 K/mm3 (150-400); RDW Coefficient Variation 13.6 % (11.7-14.2); RDW Standard Deviation 44.4 fL (35.1-46.3); Red Blood Cell Count 3.12 M/mm3 (4.30-5.90); White Blood Cell Count 5.44 K/mm3 (4.00-11.30)
[2024-08-10 04:48] LABS: Albumin, Blood 3.1 g/dL (3.4-5.0); Albumin/Globulin Ratio 0.8 (0.8-1.8); Bilirubin, Total 0.9 mg/dL (0.1-1.0); Bun/Creatinine Ratio 37.2 (12.0-20.0); Calcium, Blood 9.2 mg/dL (8.5-10.1); Creatinine, Blood 0.97 mg/dL (0.60-1.20); Globulin, Blood 4.1 g/dL (2.2-4.0); Potassium, Blood 3.2 mmol/L (3.5-5.5); Total Protein, Blood 7.2 g/dL (6.4-8.2)
[2024-08-10] MEDS ORDERED: Potassium Chloride 10 Meq Tablet SA PO ONE (08:25)
[2024-08-10 09:47] VITALS: BP 156/81
[2024-08-10 15:56] VITALS: BP 145/98
--- NOTE | 2024-08-10 16:40 | NUR ---
SHIFT SUMMARY: PT ALERT AND ORIENTED X2-3. ABLE TO FOLLOW COMMANDS AND MAKE NEEDS KNOWN. FORGETFUL, HX OF DEMENTIA. BED ALARM FOR SAFETY. PT IRRITABLE AT TIMES WITH CARE, EASILY REDIRECTABLE. BP AND HR STABLE. AFEBRILE. SPO2 >98% ON ROOM AIR. LUNG SOUNDS CLEAR IN UPPER, DIM IN BASES. RESPIRATIONS EVEN AND UNLABORED. PULSES STRONG AND EQUAL THROUGHOUT. ABD SOFT, NON TENDER, BOWEL SOUNDS +. PUREWICK REMAINS IN PLACE, APPROX 1300 ML OF URINARY OUTPUT THIS SHIFT. ONE BM. PT ABLE TO STAND AND TRANSFER W/ ONE PERSON ASSIST. PT NOW MEDICAL WITH TELE STATUS. BED IN LOW, CALL LIGHT IN REACH, WILL REPORT TO ONCOMING RN.
[2024-08-10 20:00] VITALS: BP 143/94
--- NOTE | 2024-08-10 20:47 | NUR ---
PT IS LAYING IN BED WATCHING TV. ALERT AND ORIENTED X2. PT IS PACED AT 60, PT DENIES CHEST PAIN. PT IS ON ROOM AIR SATTING >95%. PT IS STILL USING MALE PUREWICK AND TOLERATING WELL. PLAN IS TO DISCHARGE BACK TO FACILITY ON MONDAY. PLAN OF CARE CONTINUED.
[2024-08-11 00:16] VITALS: BP 166/72
[2024-08-11 01:48] VITALS: BP 166/72
[2024-08-11 05:00] VITALS: BP 152/71
--- NOTE | 2024-08-11 05:38 | NUR ---
SHIFT SUMMARY PT IS TRANSFER FROM PCU FOR SOB. PT IS ALERT AND ORIENTED TIMES 2. PT IS ABLE TO USE BEDSIDE COMMODE WITH ONE PERSON ASSIST AND WALKER PT. ABLE TO MAKE NEEDS KNOWN, IS ON ROOM AIR. TAKES MEDS WHOLE IN WATER. . PT PULLED RT FOREARM IV OUT WELL PUREWICK. PT IS EXTREMELY NEEDY AND PRESSES CALL LIGHT. CONTINUOUSLY THROUGHOUT THE NIGHT. AT ONE POINT PT WANTED TO USE THE BATHROOM BUT BECAME UPSET THAT THERE WERE NO DEVICES TO LIGHT A CIGARETTE. HE THEN GOT OUT OF BED AND FELL. PT DENIES HITTING HIS HEAD. VITALS TAKEN AND TOOL FILER NOTIFIED. PT ASSESSED FOR SKIN TEARS OR ABRASIONS. PT WAS ASSISTED BACK TO BED. APPEARED TO WATCH TV THROUGH OUT THE NIGHT. PT CONTINUOUSLY NON COMPLIANT WITH CARE AND BELITTLES CLINIC ADMINISTRATOR. PT REFUSED A CHANGE OF HOSPITAL GOWN. AND REFUSED IV ACCESS. TOOL FILER CONTACTED TO SEE ABOUT CHANGING IV LASIX TO PO ORDER. PT HAS BED ALARM. BED IN LOW POSITION, CALL LIGHT WITHIN REACH, RAILS TIMES 2.
[2024-08-11 07:40] VITALS: BP 150/76
[2024-08-11] MEDS ORDERED: Furosemide 80 MG Tab PO SCH ×2 (09:00→14:00)
[2024-08-11] MEDS ORDERED: Potassium Chloride 10 Meq Tablet SA PO ONE (09:00)
[2024-08-11] MEDS ORDERED: Spironolactone 25 MG Tab PO SCH (14:00)
[2024-08-11] MEDS ORDERED: Empagliflozin 10 MG TAB PO SCH (14:00)
[2024-08-11 14:30] VITALS: BP 172/82
--- NOTE | 2024-08-11 17:57 | NUR ---
SHIFT SUMMARY PT A&O TO SELF/PERSON ONLY, VSS, TOLERATING SMALL AMOUNT OF PO, VOIDING, AND DENIED PAIN. PT COOPERATIVE W/ SOME CARE. NO ACUTE CHANGES. CALL LIGHT WITHIN REACH AND BED ALARM ON FOR SAFETY.
[2024-08-11 22:04] VITALS: BP 147/87
[2024-08-12 03:56] VITALS: BP 158/83
--- NOTE | 2024-08-12 04:48 | NUR ---
SHIFT SUMMARY PT IS ALERT AND ORIENTED TIMES 2. PT IS ABLE TO USE BEDSIDE COMMODE WITH ONE PERSON ASSIST AND WALKER PT. ABLE TO MAKE NEEDS KNOWN, IS ON ROOM AIR. TAKES MEDS WHOLE IN WATER. PT PRESSES CALL LIGHT THEN DENIES HE WANTED ANYTHING. PT CONTINUOUSLY CHALLENGING WITH CARE AND BELITTLES STAFF. PT REFUSED A CHANGE OF HOSPITAL GOWN AND BEDDING. PT HAS BED ALARM. BED IN LOW POSITION, CALL LIGHT WITHIN REACH, RAILS TIMES 2.
[2024-08-12 07:45] VITALS: BP 162/80
[2024-08-12 16:18] VITALS: BP 143/85
[2024-08-12 19:31] VITALS: BP 147/70
[2024-08-13 02:24] VITALS: BP 148/77
--- NOTE | 2024-08-13 06:57 | NUR ---
SHIFT SUMMARY PT WALKED TO BATHROOM WITH FWW WITH THIS RN AND SCRIPT ARTIST. PT SLOW AND STILL UNSTABLE ON FEET. PT BED REMADE, BRIEF CHANGED AND PT BACK IN BED WITH BED ALARM ON. PT IS FEELING AGITATED TONIGHT. INFORMED PT HE CANNOT MISTREAT STAFF. PT HAS ICE WATER AT BEDSIDE AND IS SITTING COMFORTABLY IN BED WATCHING TV. WILL RELAY TO DAY NURSE.
[2024-08-13 07:47] VITALS: BP 139/72
[2024-08-13] MEDS ORDERED: JARDIANCE10 MG PO (09:30)
[2024-08-13] MEDS ORDERED: FURO40 PO (09:31)
--- NOTE | 2024-08-13 10:41 | NUR ---
DISCHARGE NOTE: MEDICAL TRANSPORT ARRIVED TO GET PATIENT TO TAKE BACK TO [facility]. PATIENT NOTIFIED OF DISCHARGE AND ASKED WHERE HE WAS GOING; NOTIFIED [facility]. CALLED AND GAVER REPORT TO STEVE THE NURSE OVER THERE. PAPERWORK AND BELONGINGS SENT WITH PATIENT. PATIENT WAS ABLE TO TRANSFER WITH TWO STAFF ASSIST TO WHEELCHAIR. NO SIGNS OR SYMPTOMS OF DISTRESS. PATIENT REFUSED TO GET DRESSED SENT IN [facility].
== END 2024-08-13 10:37 | disposition home or self-care (01) | DRG 291 ==
LOC: ER 05:31 → PCU 05:32 → MEDS 08-09 15:37 → PCU 08-09 15:37 → MEDS 08-10 21:01
PROVIDERS: Emergency Medicine; Family Medicine; ADMIT Hospitalist
DX: I11.0 Hypertensive heart disease with heart failure (principal); I50.31 Acute diastolic (congestive) heart failure; J96.01 Acute respiratory failure with hypoxia; N17.9 Acute kidney failure, unspecified; F03.93 Unspecified dementia, unspecified severity, with mood disturbance; I48.20 Chronic atrial fibrillation, unspecified; G89.29 Other chronic pain; F17.210 Nicotine dependence, cigarettes, uncomplicated; E78.5 Hyperlipidemia, unspecified; F43.10 Post-traumatic stress disorder, unspecified; M54.50 Low back pain, unspecified; F10.10 Alcohol abuse, uncomplicated; F12.90 Cannabis use, unspecified, uncomplicated; E11.40 Type 2 diabetes mellitus with diabetic neuropathy, unspecified; Z88.2 Allergy status to sulfonamides; Z88.5 Allergy status to narcotic agent; Z88.6 Allergy status to analgesic agent; Z88.8 Allergy status to other drugs, medicaments and biological substances; Z79.84 Long term (current) use of oral hypoglycemic drugs; Z79.899 Other long term (current) drug therapy; Z95.0 Presence of cardiac pacemaker
CPT/HCPCS: 0241U; 36415; 71045; 80053; 82803; 83735; 83880; 84443; 84484; 85025; 93005; 93010; 93306; 94640; 94660; 94664; 94760; 94762; 96374; 96376; 99285-25; A9270; G0378; J1940

== ENCOUNTER 2024-08-22 12:49 | Emergency (ER) | payer OTHER ==
[~2024-08-22] VITALS: Ht 172.7 cm; Wt 72.6 kg
[~2024-08-22 12:49] MED LIST changes: +ALBU90OI INH; +Acetaminophen325 M1 PO; +BUTRANS TD; +Crestor40 MG PO; +DULCOLAX400 MG/5 M PO; +FURO40 PO; +GABA100 PO; +JARDIANCE10 MG PO; +LIDO700A20 TOP; +LOPE2C PO; +NYSTATIN15 GM TOP; +PANT40 PO; +SENN187 PO; +SERT100 PO; +STRIVERDI RESPIM4 G1; +TOCO1000 PO
[2024-08-22 17:30] VITALS: BP 128/74
== END 2024-08-22 17:30 | disposition home or self-care (01) ==
LOC: ER 12:49
DX: T17.928A Food in respiratory tract, part unspecified causing other injury, initial encounter (principal); R55 Syncope and collapse; Z79.84 Long term (current) use of oral hypoglycemic drugs; Z79.899 Other long term (current) drug therapy; W44.F3XA Food entering into or through a natural orifice, initial encounter
CPT/HCPCS: 71045; 99284-25

== ENCOUNTER → 2024-09-27 | Outpatient (CLI) | payer OTHER ==
[2024-09-27 13:34] LABS: Source, Urine Clean Catch
[2024-09-27 15:45] LABS: Appearance, Urine Clear (Clear); Bilirubin, Urine Neg (Neg); Blood, Urine Neg (Neg); Color, Urine Yellow (P-Yellow); Glucose Qualitative, Urine 4+ (Neg); Ketones, Urine Neg (Neg); Leukocyte Esterase, Urine Neg (Neg); Nitrite, Urine Neg (Neg); Protein, Urine 2+ (Neg); Urobilinogen, Urine NORM (Normal); pH, Urine 6.5 (5.0-8.0)
[2024-09-27 16:33] LABS: Bacteria Rare /hpf; Red Blood Cells, Urine 0-2 /hpf (0-2); Squamous Epithelial Cells Not Seen /hpf (Few); White Blood Cells, Urine 0-2 /hpf (0-5)
== END | disposition home or self-care (01) ==
LOC: LAB SHORT 13:31 → LAB 13:31
PROVIDERS: Nurse Practitioner Family
DX: N39.0 Urinary tract infection, site not specified (principal)
CPT/HCPCS: 81001

== ENCOUNTER 2025-01-30 17:00 | Emergency (ER) | payer OTHER ==
[~2025-01-30] VITALS: Ht 162.6 cm; Wt 72.6 kg
[2025-01-30] MEDS ORDERED: Diphth,Pertuss(Acell),Tet Vac 0.5 ML VIAL IM ONE (17:50)
[2025-01-30 19:08] VITALS: BP 142/68
== END 2025-01-30 19:26 | disposition home or self-care (01) ==
LOC: ER 17:00
DX: S31.010A Laceration without foreign body of lower back and pelvis without penetration into retroperitoneum, initial encounter (principal); S09.90XA Unspecified injury of head, initial encounter; Z23 Encounter for immunization; I10 Essential (primary) hypertension; F43.10 Post-traumatic stress disorder, unspecified; E11.40 Type 2 diabetes mellitus with diabetic neuropathy, unspecified; Z86.59 Personal history of other mental and behavioral disorders; Z88.2 Allergy status to sulfonamides; Z88.8 Allergy status to other drugs, medicaments and biological substances; Z88.5 Allergy status to narcotic agent; Z79.01 Long term (current) use of anticoagulants; Z79.899 Other long term (current) drug therapy; Z79.84 Long term (current) use of oral hypoglycemic drugs; W18.30XA Fall on same level, unspecified, initial encounter
CPT/HCPCS: 12001; 70450; 90471; 90715; 99284-25

== ENCOUNTER 2025-03-10 14:53 | Emergency (ER) | payer OTHER ==
[~2025-03-10] VITALS: Ht 160 cm; Wt 74.8 kg
[2025-03-10 15:07] VITALS: BP 158/80
[2025-03-10 15:46] LABS: BASOPHILS ABSOLUTE AUTO 0.02 K/mm3 (0.00-0.23); BASOPHILS PERCENT AUTO 1 % (0-2); EOSINOPHILS ABSOLUTE AUTO 0.05 K/mm3 (0.00-0.68); EOSINOPHILS PERCENT AUTO 1 % (0-6); Hematocrit 35.6 % (37.0-53.0); Hemoglobin 12.1 g/dL (13.5-17.5); IMMATURE GRAN ABSOLUTE AUTO 0.01 K/mm3 (0.00-0.10); IMMATURE GRAN PERCENT AUTO 0 % (0-1); LYMPHOCYTES PERCENT AUTO 16 % (21-46); MONOCYTES ABSOLUTE AUTO 0.34 K/mm3 (0.16-1.47); MONOCYTES PERCENT AUTO 8 % (4-13); Mean Corpuscular HGB 31.7 pg (26.0-34.0); Mean Corpuscular Volume 93 fL (80-100); Mean Platelet Volume 9.1 fL (9.1-12.4); NEUTROPHILS ABSOLUTE AUTO 3.19 K/mm3 (1.96-9.15); NEUTROPHILS PERCENT AUTO 74 % (41-73); Platelet Count 161 K/mm3 (150-400); RDW Coefficient Variation 13.7 % (11.7-14.2); RDW Standard Deviation 46.5 fL (35.1-46.3); Red Blood Cell Count 3.82 M/mm3 (4.30-5.90); White Blood Cell Count 4.31 K/mm3 (4.00-11.30)
[2025-03-10 16:19] LABS: Albumin, Blood 3.8 g/dL (3.4-5.0); Albumin/Globulin Ratio 0.8 (0.8-1.8); Bilirubin, Total 0.4 mg/dL (0.1-1.0); Bun/Creatinine Ratio 24.6 (12.0-20.0); Calcium, Blood 9.2 mg/dL (8.5-10.1); Creatinine, Blood 1.87 mg/dL (0.60-1.20); Globulin, Blood 4.7 g/dL (2.2-4.0); Magnesium, Blood 2.2 mg/dL (1.6-2.4); Total Protein, Blood 8.5 g/dL (6.4-8.2)
[2025-03-10 18:22] LABS: Source, Urine Clean Catch
[2025-03-10 19:54] LABS: Appearance, Urine Clear (Clear); Bilirubin, Urine Neg (Neg); Blood, Urine Neg (Neg); Color, Urine Yellow (P-Yellow); Glucose Qualitative, Urine 4+ (Neg); Ketones, Urine Neg (Neg); Leukocyte Esterase, Urine Neg (Neg); Nitrite, Urine Neg (Neg); Protein, Urine 2+ (Neg); Urobilinogen, Urine NORM (Normal)
[2025-03-10 20:24] LABS: Bacteria Rare /hpf; Red Blood Cells, Urine 0-2 /hpf (0-2); Squamous Epithelial Cells Rare /hpf (Few); White Blood Cells, Urine 0-2 /hpf (0-5)
== END 2025-03-10 21:40 | disposition home or self-care (01) ==
LOC: ER 14:53
PROVIDERS: Emergency Medicine
DX: N17.9 Acute kidney failure, unspecified (principal); I10 Essential (primary) hypertension; E11.42 Type 2 diabetes mellitus with diabetic polyneuropathy; F03.90 Unspecified dementia, unspecified severity, without behavioral disturbance, psychotic disturbance, mood disturbance, and anxiety; F17.210 Nicotine dependence, cigarettes, uncomplicated; Z95.0 Presence of cardiac pacemaker; Z88.2 Allergy status to sulfonamides; Z88.6 Allergy status to analgesic agent; Z88.5 Allergy status to narcotic agent; Z88.1 Allergy status to other antibiotic agents; Z79.01 Long term (current) use of anticoagulants; Z79.84 Long term (current) use of oral hypoglycemic drugs; Z79.899 Other long term (current) drug therapy
CPT/HCPCS: 51798; 80053; 81001; 83735; 85025; 99283-25

== ENCOUNTER 2025-08-17 09:58 | Emergency (ER) | payer OTHER ==
[~2025-08-17] VITALS: Ht 162.6 cm; Wt 63.5 kg
[2025-08-17] MEDS ORDERED: ACET500 PO (10:27)
[2025-08-17] MEDS ORDERED: BUTRANS1 EAC6 TD (10:28)
[2025-08-17] MEDS ORDERED: FERROUS GLUCON324 M7 PO (10:28)
[2025-08-17] MEDS ORDERED: Prozac20 MG PO (12:12)
[2025-08-17] MEDS ORDERED: JARDIANCE25 MG PO (12:13)
[2025-08-17] MEDS ORDERED: FURO20 PO (12:13)
[2025-08-17] MEDS ORDERED: LOSA25 PO (12:14)
[2025-08-17 18:00] VITALS: BP 159/73
== END 2025-08-17 19:07 | disposition home or self-care (01) ==
LOC: ER 09:58
DX: S06.6X1A Traumatic subarachnoid hemorrhage with loss of consciousness of 30 minutes or less, initial encounter (principal); I10 Essential (primary) hypertension; E11.42 Type 2 diabetes mellitus with diabetic polyneuropathy; Z95.0 Presence of cardiac pacemaker; F17.210 Nicotine dependence, cigarettes, uncomplicated; Z88.2 Allergy status to sulfonamides; Z88.6 Allergy status to analgesic agent; Z88.5 Allergy status to narcotic agent; Z88.1 Allergy status to other antibiotic agents; Z79.01 Long term (current) use of anticoagulants; Z79.84 Long term (current) use of oral hypoglycemic drugs; Z79.899 Other long term (current) drug therapy; W18.30XA Fall on same level, unspecified, initial encounter
CPT/HCPCS: 70450; 82947; 93005; 93010; 99285-25; A9270

== ENCOUNTER 2025-08-27 06:48 | Emergency (ER) | payer OTHER ==
[~2025-08-27] VITALS: Ht 165.1 cm; Wt 63.5 kg
[~2025-08-27 06:48] MED LIST changes: +ACET500 PO; +BUTRANS1 EAC6 TD; +FERROUS GLUCON324 M7 PO; +FURO20 PO; +JARDIANCE25 MG PO; +LOSA25 PO; +Prozac20 MG PO
[2025-08-27 07:46] LABS: Source, Urine Clean Catch
[2025-08-27 07:56] LABS: Bilirubin, Urine Neg (Neg); Glucose Qualitative, Urine 4+ (Neg); Ketones, Urine Neg (Neg); Leukocyte Esterase, Urine Neg (Neg); Protein, Urine 3+ (Neg); Specific Gravity, Urine 1.010 (1.003-1.022); Urobilinogen, Urine NORM (Normal)
[2025-08-27 08:09] LABS: Color, Urine Pale Yellow (P-Yellow)
[2025-08-27 08:15] LABS: Red Blood Cells, Urine 0-2 /hpf (0-2); White Blood Cells, Urine 0-2 /hpf (0-5)
[2025-08-27 10:30] VITALS: BP 188/73
== END 2025-08-27 11:40 | disposition home or self-care (01) ==
LOC: ER 06:48
PROVIDERS: Emergency Medicine
DX: S09.90XA Unspecified injury of head, initial encounter (principal); I10 Essential (primary) hypertension; E11.42 Type 2 diabetes mellitus with diabetic polyneuropathy; F17.210 Nicotine dependence, cigarettes, uncomplicated; Z91.81 History of falling; Z95.0 Presence of cardiac pacemaker; Z88.2 Allergy status to sulfonamides; Z88.6 Allergy status to analgesic agent; Z88.5 Allergy status to narcotic agent; Z88.1 Allergy status to other antibiotic agents; Z79.01 Long term (current) use of anticoagulants; Z79.899 Other long term (current) drug therapy; Z79.84 Long term (current) use of oral hypoglycemic drugs; W18.30XA Fall on same level, unspecified, initial encounter
CPT/HCPCS: 70450; 81001; 99284-25